=== PATIENT | female | born 1980 | race Caucasian/White ===

== ENCOUNTER → 2023-11-17 13:29 | Outpatient (REF) | payer BC, SELFPAY | LOC: MRI 3T 13:29 | PROVIDERS: ATTENDING PHYSICIAN Orthopaedic Surgery Sports Medicine; FAMILY PHYSICIAN Nurse Practitioner | DX: S73.192A Other sprain of left hip, initial encounter (principal); Q65.89 Other specified congenital deformities of hip | CPT/HCPCS: 27093; 73525 ==